=== PATIENT | female | born 1995 | race Caucasian/White ===

== ENCOUNTER 2019-03-30 15:44 | Emergency (ER) | payer OTHER ==
[2019-03-30] MEDS ORDERED: ONDANSETRON HCL INJ/PF 4 MG/2 ML SDV IV ONE (16:56)
[2019-03-30] MEDS ORDERED: NORMAL SALINE 1000 ML 1,000 ML IV ONE (16:57)
--- NOTE | 2019-03-30 17:01 | ER Document Report ---
ED Medical Screen (RME) - General Chief Complaint: Abdominal Pain Stated Complaint: ABDOMINAL PAIN Time Seen by Provider: 03/30/19 16:50 Notes: 23-year-old female presents to the emergency department for epigastric and right upper quadrant abdominal pain since Sunday. Patient states the pain is stabbing and is across her upper abdomen. She states the pain is 5/5 and nothing makes it better or worse but it is constant. Patient states that she has had at least 20 episodes of diarrhea since then with significant nausea and vomiting one time yesterday. She states her son was sick late last week but got over it in about 1 day. She denies any fevers but complains of hot and cold spells, complains of dizziness and lightheadedness, denies any headache or neck stiffness, denies any acute shortness of breath or chest pain. I have greeted and performed a rapid initial assessment of this patient. A comprehensive ED assessment and evaluation of the patient, analysis of test results and completion of medical decision making process will be conducted by an additional ED providers. - Related Data Allergies/Adverse Reactions: No Known Allergies Allergy (Verified 03/30/19 15:54) Past Medical History - Social History Chew tobacco use (# tins/day): No Frequency of alcohol use: Social Drug Abuse: None Renal/ Medical History: Denies: Hx Peritoneal Dialysis Past Surgical History: Reports: Hx Section Physical Exam - Vital signs Vitals: Temp Pulse Resp BP Pulse Ox 97.9 F 57 L 15 142/97 H 100 03/30/19 15:56 03/30/19 15:56 03/30/19 15:56 03/30/19 15:56 03/30/19 15:56 Course - Vital Signs Vital signs: Temp Pulse Resp BP Pulse Ox 97.9 F 57 L 15 142/97 H 100 03/30/19 15:56 03/30/19 15:56 03/30/19 15:56 03/30/19 15:56 03/30/19 15:56
[2019-03-30 18:08] LABS: ABSOLUTE EOSINOPHILS # (AUTO) 0.1 10^3/uL (0.0-0.6); ABSOLUTE LYMPHOCYTES (AUTO) 1.5 10^3/uL (0.5-4.7); ABSOLUTE MONOCYTES (AUTO) 0.5 10^3/uL (0.1-1.4); BASOPHILS % (AUTO) 0.4 % (0-2); EOSINOPHILS % (AUTO) 1.4 % (0-6); HEMATOCRIT 42.2 % (36.0-47.0); HEMOGLOBIN 14.2 g/dL (12.0-15.5); LYMPHOCYTES % (AUTO) 18.1 % (13-45); MEAN CORPUSCULAR HEMOGLOBIN 29.4 pg (27.0-33.4); MEAN CORPUSCULAR HGB CONC 33.8 g/dL (32.0-36.0); MEAN CORPUSCULAR VOLUME 87 fl (80-97); MONOCYTES % (AUTO) 6.3 % (3-13); PLATELET COUNT 283 10^3/uL (150-450); RED BLOOD COUNT 4.84 10^6/uL (3.72-5.28); RED CELL DISTRIBUTION WIDTH 13.2 % (11.5-14.0); SEGMENTED NEUTROPHILS % (AUTO) 73.8 % (42-78); TOTAL CELLS COUNTED % (AUTO) 100 %; WHITE BLOOD COUNT 8.1 10^3/uL (4.0-10.5)
[2019-03-30 18:13] LABS: APPEARANCE,URINE CLEAR; BILIRUBIN,URINE NEGATIVE (NEGATIVE); COLOR,URINE YELLOW; GLUCOSE, URINE NEGATIVE (NEGATIVE); KETONES,URINE NEGATIVE (NEGATIVE); LEUKOCYTE ESTERASE,URINE NEGATIVE (NEGATIVE); NITRITE,URINE NEGATIVE (NEGATIVE); PROTEIN,URINE NEGATIVE (NEGATIVE); UROBILINOGEN,URINE NEGATIVE mg/dL (<2.0)
[2019-03-30 18:18] LABS: ALANINE AMINOTRANSFERASE 40 U/L (9-52); ALBUMIN 4.6 g/dL (3.5-5.0); ALKALINE PHOSPHATASE 106 U/L (38-126); ANION GAP 11 (5-19); ASPARTATE AMINO TRANSFERASE 25 U/L (14-36); BILIRUBIN,DIRECT 0.3 mg/dL (0.0-0.4); BILIRUBIN,TOTAL 0.5 mg/dL (0.2-1.3); BLOOD UREA NITROGEN 9 mg/dL (7-20); CALCIUM 9.8 mg/dL (8.4-10.2); CARBON DIOXIDE 28 mmol/L (22-30); CHLORIDE 101 mmol/L (98-107); GLUCOSE 100 mg/dL (75-110); POTASSIUM 4.5 mmol/L (3.6-5.0); SODIUM 139.6 mmol/L (137-145); TOTAL PROTEIN 8.1 g/dL (6.3-8.2)
[2019-03-30] MEDS ORDERED: METOCLOPRAMIDE HCL INJ/PF 10 MG/2 ML SDV IV ONE (18:41)
[2019-03-30] MEDS ORDERED: FAMOTIDINE INJ/PF 20 MG/2 ML SDV IV ONE (18:41)
--- NOTE | 2019-03-30 19:05 | ER Document Report ---
ED GI/ - General Chief Complaint: Abdominal Pain Stated Complaint: ABDOMINAL PAIN Time Seen by Provider: 03/30/19 16:50 Primary Care Provider: AKUA SLATER PA [Primary Care Provider] - Follow up as needed Notes: Patient is a 23-year-old female presents to the emergency department with a chief complaint of diarrhea and abdominal pain. Patient states that she developed epigastric and right upper quadrant pain on Sunday. Patient states she has had extreme nausea with one episode of vomiting. Patient states she has had chills. Patient states her son complained of a stomachache last week but did not have diarrhea and his symptoms only lasted 24 hours. Patient reports that it is sharp and stabbing in nature. Patient states she is unable to find a position of comfort due to the pain. Patient states she woke up this morning feeling little bit better and attempted to eat but that the pain in the right upper quadrant was significantly worse and she had diarrhea. Patient states yesterday she did have over 20 episodes of diarrhea. Patient states it seems to have subsided today. Patient denies recent antibiotic use and recent travel outside of the [facility]. Patient has attempted Imodium with minimal relief today. - Related Data Allergies/Adverse Reactions: No Known Allergies Allergy (Verified 03/30/19 15:54) Past Medical History - General Information source: Patient - Social History Smoking Status: Never Smoker Chew tobacco use (# tins/day): No Frequency of alcohol use: Social Drug Abuse: None Lives with: Family Family History: None Patient has suicidal ideation: No Patient has homicidal ideation: No - Past Medical History Cardiac Medical History: Reports: None Pulmonary Medical History: Reports: None EENT Medical History: Reports: None Neurological Medical History: Reports: None Endocrine Medical History: Reports: None Renal/ Medical History: Reports: None. Denies: Hx Peritoneal Dialysis Malignancy Medical History: Reports: None GI Medical History: Reports: None Musculoskeletal Medical History: Reports None Skin Medical History: Reports None Psychiatric Medical History: Reports: None Traumatic Medical History: Reports: None Infectious Medical History: Reports: None Past Surgical History: Reports: Hx Section Review of Systems - Review of Systems Constitutional: See HPI EENT: No symptoms reported Cardiovascular: No symptoms reported Respiratory: No symptoms reported Gastrointestinal: No symptoms reported Genitourinary: No symptoms reported Female Genitourinary: No symptoms reported Musculoskeletal: No symptoms reported Skin: No symptoms reported Hematologic/Lymphatic: No symptoms reported Neurological/Psychological: No symptoms reported Physical Exam - Vital signs Vitals: Temp Pulse Resp BP Pulse Ox 97.9 F 57 L 15 142/97 H 100 03/30/19 15:56 03/30/19 15:56 03/30/19 15:56 03/30/19 15:56 03/30/19 15:56 Interpretation: Hypertensive, Bradycardic - Notes Notes: GENERAL: Well-appearing, well-nourished and in no acute distress. HEAD: Atraumatic, normocephalic. EYES: Pupils equal round and reactive to light, extraocular movements intact, sclera anicteric, conjunctiva are normal. ENT: TMs normal, nares patent, oropharynx clear without exudates. Moist mucous membranes. NECK: Normal range of motion, supple without lymphadenopathy or JVD. LUNGS: Breath sounds clear to auscultation bilaterally and equal. No wheezes rales or rhonchi. HEART: Regular rate and rhythm without murmurs, rubs or gallops. ABDOMEN: Soft, epigastric and RUQ tenderness, hyperactive bowel sounds. No guarding, no rebound. No masses appreciated. BACK: No cervical, thoracic, lumbar midline tenderness. No saddle anesthesia, normal distal neurovascular exam. GENITOURINARY: Deferred. EXTREMITIES: Normal range of motion, no pitting or edema. No clubbing or cyanosis. NEUROLOGICAL: Cranial nerves II through XII grossly intact. Normal speech, normal gait. PSYCH: Normal mood, normal affect. SKIN: Warm, Dry, normal turgor, no rashes or lesions noted. Course - Re-evaluation Re-evalutation: 03/30/19 20:43 I did inform the patient that if she was able to provide a stool sample we would like to obtain one as she reports having greater than 20 episodes of diarrhea yesterday patient states she does not feel like she has to have a bowel movement at this time. 03/30/19 22:02 Upon reassessment patient is resting comfortably on stretcher. Patient nancy apoorva to states she has not had any diarrhea since being in the emergency department. Patient has no nausea or vomiting. Patient denies pain at this time. I did inform the patient that her right upper quadrant ultrasound was negative for any acute abnormality. Patient lab work and a urinalysis was unremarkable. I did inform the patient that she potentially has been exposed to a viral illness and could have a gastroenteritis causing the diarrhea and epigastric discomfort. I will give patient a dose of Bentyl prior to discharge and will prescribe her antinausea medicine as well as Bentyl to go home with. Patient is in agreement with this plan as well as her mother who was at the bedside. Patient no acute distress and stable for discharge. - Vital Signs Vital signs: Temp Pulse Resp BP Pulse Ox 98.6 F 63 16 136/84 H 100 03/30/19 19:35 03/30/19 19:35 03/30/19 19:35 03/30/19 19:35 03/30/19 19:35 - Laboratory Result Diagrams: 03/30/19 17:38 03/30/19 17:38 Discharge - Discharge Clinical Impression: Epigastric pain, RUQ pain Diarrhea Qualifiers: Diarrhea type: unspecified type Qualified Code(s): R19.7 - Diarrhea, unspecified Condition: Stable Disposition: HOME, SELF-CARE Additional Instructions: Today you were seen in the emergency department for epigastric and right upper quadrant pain as well as diarrhea. You have not had any episodes of diarrhea since being in the emergency department so we are unable to obtain a specimen. Your lab work was unremarkable and did not show signs of infection, anemia, electrolyte disturbances, dehydration or urinary tract infection. Please take the Bentyl as needed for abdominal cramping, Zofran as needed for nausea and vomiting. Advance your diet as tolerated and avoid greasy foods or anything heavy and spicy over the next few days. I would start out with the brat diet, this is bread, rice, applesauce and toast. Please return to the emergency department for any worsening signs or symptoms to include severe abdominal pain, change in your pain, blood in the vomitus, urine or bowel movement, fever g reater than 100.4 or any other concerning signs or symptoms. Abdominal Pain There are many causes of abdominal pain. Pain can mean a serious problem requiring surgery (such as appendicitis). It can also be an innocent problem that goes away on its own (such as a viral infection). Often, time must pass to determine the cause of pain. The physician does not feel that hospitalization is necessary, at present. Things may change within the next 24 hours. Call the doctor or come back for re- examination if any problems occur, such as: (1) Pain that becomes more severe, steady, or becomes concentrated in one specific area. Also, pain that is more severe with movement or coughing. (2) Vomiting that persists or becomes more frequent. (3) Blood in the vomitus, urine, or bowel movements. Blood in the stool may have a tarry or black appearance. (4) Shaking chills or fever greater than 100 degrees F. (5) The abdomen becomes more distended or swollen. (6) Bowel movements cease. (7) Failure to improve as expected. Prescriptions: Dicyclomine HCl [Bentyl 20 mg Tablet] 20 mg PO QID #28 tablet Famotidine [Pepcid 20 mg Tablet] 20 mg PO DAILY #30 tablet Ondansetron [Zofran Odt 4 mg Tablet] 1 tab PO Q6 #15 tab.sameera Referrals: AKUA SLATER PA [Primary Care Provider] - Follow up as needed
[2019-03-30] MEDS ORDERED: MORPHINE SULFATE 10 MG/ML INJ IV ONE (19:38)
--- NOTE | 2019-03-30 21:30 | RADIOLOGY REPORT (SQ) ---
EXAM DESCRIPTION: [facility]: US ABDOMEN LIMITED CLINICAL HISTORY: 23 years Female; ruq pain TECHNIQUE: Right upper quadrant ultrasound was performed. COMPARISON: None. FINDINGS: Pancreas: Visualized portions are unremarkable. Liver: 15 cm long. No ductal distention. Portal venous flow is hepatopedal, normal. Gallbladder: normal with no gallstones or sonographic evidence for acute cholecystitis. No pericholecystic fluid. No sonographic Doran's sign. Common bile duct: 3 mm. Right kidney: 11.5 x 5 x 6.1 cm. No hydronephrosis. Aorta and IVC are within normal limits. IMPRESSION: 1. Normal right upper quadrant ultrasound.
[2019-03-30] MEDS ORDERED: DICYCLOMINE HCL INJ 20 MG/2 ML AMPULE IM ONE (22:06)
[2019-03-30] MEDS ORDERED: ONDANSETRON ODT 4 MG TAB (6 TAB/ER DISP) PO PRN (22:07)
[2019-03-30 22:51] VITALS: BP 113/77
== END 2019-03-30 22:40 | disposition home or self-care (01) ==
LOC: ER 15:44
DX: R10.13 Epigastric pain (principal); R10.11 Right upper quadrant pain; R11.2 Nausea with vomiting, unspecified; R19.7 Diarrhea, unspecified; R10.816 Epigastric abdominal tenderness; R10.811 Right upper quadrant abdominal tenderness; R68.83 Chills (without fever)
CPT/HCPCS: 99284; 96372; 96361; 96374; 96375; 36415; 85025; 81025; 80053; 81001; 76705; J0500; J2765; J2270; J2405; J7030; S0028